=== PATIENT | female | born 1940 | race Caucasian/White ===

== ENCOUNTER 2016-05-11 20:18 | Inpatient (IN) | payer OTHER ==
[2016-05-11] MEDS ORDERED: ACETAMINOPHEN 325 MG TAB PO ONE (20:39)
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
[2016-05-11] MEDS ORDERED: NS 1,000 ML IV ONE ×2 (21:03→22:07)
[2016-05-11] MEDS ORDERED: ACETAMINOPHEN 160 MG/5 ML UDCUP PO ONE (21:30)
[2016-05-11] MEDS ORDERED: AZITHROMYCIN IV 500 MG in D5W 250 ML IV ONE (21:36)
[2016-05-11 21:38] LABS: % IMMATURE GRANULYOCYTES 0.2 % (0.0-1.1); ABSOLUTE IMMATURE GRANULOCYTES 0.03 10^3/uL (0.00-0.10); ADD DIFF? NO; ADD MORPH? NO; ADD SCAN? NO; ATYPICAL LYMPHOCYTE FLAG 30 (0-99); FRAGMENT RBC FLAG 0 (0-99); HEMATOCRIT 44.9 % (38.0-47.0); HEMOGLOBIN 15.2 g/dL (12.6-16.3); LEFT SHIFT FLG 10 (0-99); LIPEMIA HEMOLYSIS FLAG 90 (0-99); MEAN CELL HEMOGLOBIN 31.1 pg (27.9-34.1); MEAN CELL HEMOGLOBIN CONCENTR. 33.9 g/dL (32.4-36.7); PLATELET CLUMPS FLAG 0 (0-99); PLATELET COUNT 201 10^3/uL (150-400); RED BLOOD CELL COUNT 4.88 10^6/uL (4.18-5.33); RED CELL DISTRIBUTION WIDTH 13.7 % (11.5-15.2)
[2016-05-11 21:49] LABS: APTT 30.6 SEC (23.0-38.0); INR 1.09 (0.83-1.16)
[2016-05-11 22:00] LABS: ANION GAP 12 mEq/L (8-16); BILIRUBIN,TOTAL 1.1 mg/dL (0.1-1.4); CALCIUM 8.7 mg/dL (8.5-10.4); CARBON DIOXIDE 27 mEq/l (22-31); CHLORIDE 97 mEq/L (97-110); CREATININE 0.8 mg/dL (0.6-1.0); GLOMERULAR FILTRATION RATE > 60; GLUCOSE 119 mg/dL (70-100); POTASSIUM 3.5 mEq/L (3.5-5.2); SODIUM 136 mEq/L (134-144)
[2016-05-12] MEDS ORDERED: HYDROCODONE/APAP 5/325 TAB PO PRN (00:02)
[2016-05-12] MEDS ORDERED: ONDANSETRON 4 MG/2 ML VIAL IVP PRN (00:02)
[2016-05-12] MEDS ORDERED: ONDANSETRON DISINTEGRATING 4 MG TAB PO PRN (00:02)
[2016-05-12] MEDS ORDERED: ACETAMINOPHEN 325 MG TAB PO PRN (00:02)
[2016-05-12] MEDS ORDERED: ALBUTEROL 3 ML DEYVIAL IH PRN (00:02)
[2016-05-12] MEDS ORDERED: BENZONATATE 100 MG CAP PO PRN (00:05)
[2016-05-12] MEDS: NS 1,000 ML IV SCH ×2 (00:58→10:51)
[2016-05-12 01:25] LABS: COLOR YELLOW; LEUKOCYTE ESTERASE,URINE NEGATIVE (NEGATIVE); NITRITE,URINE NEGATIVE (NEGATIVE)
[2016-05-12 01:29] LABS: MUCUS TRACE /lpf (NONE-1+)
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
[2016-05-12 05:39] LABS: % IMMATURE GRANULYOCYTES 0.2 % (0.0-1.1); ABSOLUTE IMMATURE GRANULOCYTES 0.02 10^3/uL (0.00-0.10); ADD DIFF? NO; ADD MORPH? NO; ADD SCAN? NO; ATYPICAL LYMPHOCYTE FLAG 50 (0-99); FRAGMENT RBC FLAG 0 (0-99); HEMATOCRIT 37.3 % (38.0-47.0); HEMOGLOBIN 12.6 g/dL (12.6-16.3); LEFT SHIFT FLG 70 (0-99); LIPEMIA HEMOLYSIS FLAG 90 (0-99); MEAN CELL HEMOGLOBIN CONCENTR. 33.8 g/dL (32.4-36.7); MEAN CELL VOLUME 91.9 fL (81.5-99.8); MEAN PLATELET VOLUME 9.9 fL (8.7-11.7); PLATELET CLUMPS FLAG 20 (0-99); PLATELET COUNT 168 10^3/uL (150-400); RED BLOOD CELL COUNT 4.06 10^6/uL (4.18-5.33); RED CELL DISTRIBUTION WIDTH 13.7 % (11.5-15.2)
[2016-05-12 05:46] LABS: INR 1.35 (0.83-1.16); PROTIME(PATIENT) 16.7 SEC (12.0-15.0)
[2016-05-12 05:47] LABS: APTT 33.1 SEC (23.0-38.0)
[2016-05-12 05:49] LABS: ANION GAP 8 mEq/L (8-16); CALCIUM 7.4 mg/dL (8.5-10.4); CARBON DIOXIDE 26 mEq/l (22-31); CHLORIDE 106 mEq/L (97-110); CREATININE 0.7 mg/dL (0.6-1.0); GLOMERULAR FILTRATION RATE > 60; GLUCOSE 114 mg/dL (70-100); MAGNESIUM 1.8 mg/dL (1.6-2.3); POTASSIUM 3.5 mEq/L (3.5-5.2); SODIUM 140 mEq/L (134-144)
[2016-05-12] MEDS: AZITHROMYCIN IV 500 MG in D5W 250 ML IV SCH (09:26)
[2016-05-12] MEDS: ENOXAPARIN 40 MG/0.4 ML SYR SC SCH (09:29)
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
[2016-05-12] MEDS: NS W/ 20 KCl/L 1,000 ML IV SCH (15:16)
[2016-05-12 19:27] VITALS: O2SAT 93
[2016-05-13] MEDS: NS W/ 20 KCl/L 1,000 ML IV SCH (01:22)
[2016-05-13 05:20] LABS: % IMMATURE GRANULYOCYTES 0.3 % (0.0-1.1); ABSOLUTE IMMATURE GRANULOCYTES 0.02 10^3/uL (0.00-0.10); ADD DIFF? NO; ADD MORPH? NO; ADD SCAN? NO; ATYPICAL LYMPHOCYTE FLAG 90 (0-99); FRAGMENT RBC FLAG 0 (0-99); HEMATOCRIT 35.5 % (38.0-47.0); HEMOGLOBIN 11.9 g/dL (12.6-16.3); LEFT SHIFT FLG 0 (0-99); LIPEMIA HEMOLYSIS FLAG 80 (0-99); MEAN CELL HEMOGLOBIN 31.2 pg (27.9-34.1); MEAN CELL HEMOGLOBIN CONCENTR. 33.5 g/dL (32.4-36.7); MEAN CELL VOLUME 92.9 fL (81.5-99.8); MEAN PLATELET VOLUME 10.3 fL (8.7-11.7); PLATELET CLUMPS FLAG 0 (0-99); PLATELET COUNT 162 10^3/uL (150-400); RED BLOOD CELL COUNT 3.82 10^6/uL (4.18-5.33); RED CELL DISTRIBUTION WIDTH 13.7 % (11.5-15.2)
[2016-05-13 05:35] LABS: ANION GAP 7 mEq/L (8-16); CALCIUM 8.1 mg/dL (8.5-10.4); CARBON DIOXIDE 26 mEq/l (22-31); CHLORIDE 110 mEq/L (97-110); CREATININE 0.6 mg/dL (0.6-1.0); GLOMERULAR FILTRATION RATE > 60; GLUCOSE 126 mg/dL (70-100); MAGNESIUM 2.1 mg/dL (1.6-2.3); POTASSIUM 4.2 mEq/L (3.5-5.2); SODIUM 143 mEq/L (134-144)
[2016-05-13 07:54] VITALS: RESP 16
[2016-05-13] MEDS: ENOXAPARIN 40 MG/0.4 ML SYR SC SCH (08:40)
[2016-05-13] MEDS: AZITHROMYCIN IV 500 MG in D5W 250 ML IV SCH (08:40)
[2016-05-13] MEDS ORDERED: AZITHROMYCIN 250 MG TAB PO ONE (11:42)
--- NOTE | 2016-05-13 11:42 | PDDCSUM ---
Discharge Summary Discharge Summary: DISCHARGE SUMMARY FOLLOW-UP ITEMS: Urine strep, urine Legionella, blood cultures pending at time of discharge DATE OF ADMISSION: 05/11/16 DATE OF DISCHARGE: 05/13/2016 DISCHARGE DIAGNOSES: 1. Sepsis 2. Suspected streptococcal community-acquired pneumonia 3. Hypokalemia CONSULTATIONS: None PROCEDURES / IMAGING: Chest x-ray demonstrating right middle lobe pneumonia CHIEF COMPLAINT: Acute shortness of breath, fatigue, altered mental status SUBJECTIVE: Patient is feeling well at time of discharge, she reports her energy is significantly improved, cough is minimal PHYSICAL EXAM ON DISCHARGE: Systolic blood pressure is 120, heart 70, 93% on room air, afebrile, good air movement on inspiration and expiration bilaterally, faint inspiratory rhonchi in the right middle posterior segment, no cough has been triggered LABS ON DISCHARGE: Blood cultures negative but pending at time of discharge, sputum and demonstrating 3+ Gram-positive cocci, creatinine 0.6, white blood cell count 6300, hemoglobin 11.9 HOSPITAL COURSE BY PROBLEM: 1. Sepsis. Evidenced by fever, tachycardia, leukocytosis, tachypnea, clearly identifiable source of infection notably pneumonia, resulting in autonomic dysregulation in the setting of infection, meeting all sepsis-2 criteria from the International consents definition on sepsis-2. She was treated with empiric IV fluids and empiric IV antibiotics. Her hospitalization was extended and she was upgraded to inpatient admission status secondary to hypotension, ongoing tachycardia, ongoing need for IV fluids and supportive care. Her leukocytosis has resolved at time of discharge, and she is no longer tachycardic. 2. Suspected streptococcal community-acquired pneumonia. Evidenced by right middle lobe infiltrate on chest x-ray plus pulmonary symptoms and sepsis physiology as outlined above. She has received 2 days of IV ceftriaxone and azithromycin, will complete 3 subsequent days of levofloxacin for total 5 days of antibiotic therapy. Urine Legionella and urine strep both been sent and are pending at time of discharge. Sputum culture demonstrates 3+ Gram-positive cocci in the most likely organism is streptococcal pneumonia. DISCHARGE MEDICATIONS: Please see official discharge medication reconciliation sheet in chart , levofloxacin 750 mg x3 days, as needed guaifenesin/codeine, Mucinex scheduled. DISCHARGE INSTRUCTIONS: Please establish care with Dr. Arnold if you are remaining locally.
[2016-05-13 12:30] VITALS: BP 126/67; PULSE 81
[2016-05-13 12:31] VITALS: TEMP 98.2
== END 2016-05-13 14:07 | disposition home or self-care (01) | DRG 871 ==
LOC: INTOOBSV 22:30 → F1N 23:23 → OBSVTOIN 05-12 12:15
PROVIDERS: ADMIT Internal Medicine; ATTEND Internal Medicine
DX: A40.9 Streptococcal sepsis, unspecified (principal); J18.1 Lobar pneumonia, unspecified organism; E87.6 Hypokalemia
CPT/HCPCS: 87449-90; 96365; J0456; J0696; J1650